=== PATIENT | female | born 1945 | race Caucasian/White ===

== ENCOUNTER 2018-09-04 05:31 | Day surgery (SDC) | payer OTHER ==
[~2018-09-04] VITALS: Ht 167.6 cm; Wt 78.1 kg
[2018-09-04] MEDS ORDERED: LACTATED RINGERS 1,000 ML IV SCH (06:41)
[2018-09-04 06:44] VITALS: BP 135/81
[2018-09-04] MEDS ORDERED: OMEP-110 PO (07:01)
[2018-09-04] MEDS ORDERED: MULT-717 PO (07:01)
[2018-09-04] MEDS ORDERED: LEVO100T5 PO (07:01)
[2018-09-04] MEDS ORDERED: SIMV20TA3 PO (07:01)
[2018-09-04] MEDS ORDERED: WELLBUTRIN PO (07:01)
[2018-09-04] MEDS ORDERED: ASPI-496 PO (07:01)
[2018-09-04] MEDS ORDERED: CARV-39 PO (07:01)
[2018-09-04] MEDS ORDERED: FENTANYL PF 250 MCG/5ML ONE (08:13)
[2018-09-04] MEDS ORDERED: MIDAZOLAM 1 MG/ML, 2ML ONE (08:13)
[2018-09-04] MEDS ORDERED: PROPOFOL 10 MG/ML, 20ML ONE (08:15)
[2018-09-04] MEDS ORDERED: ROCURONIUM 10MG/ML,5ML ONE (08:15)
[2018-09-04] MEDS ORDERED: DEXAMETHASONE 4 MG/ML, 1ML ONE ×2 (08:15→08:34)
[2018-09-04] MEDS ORDERED: SUCCINYLCHOLINE 20 MG/ML, 10ML ONE (08:15)
[2018-09-04] MEDS ORDERED: ONDANSETRON 2MG/ML, 2ML ONE ×3 (08:15→10:15)
[2018-09-04] MEDS ORDERED: LIDOCAINE 2%, 6 ML JEL.PF.APP MM ONE (08:15)
[2018-09-04] MEDS ORDERED: LIDOCAINE-MPF 2% ,5ML ONE (08:16)
[2018-09-04] MEDS ORDERED: CEFAZOLIN 1,000 MG ONE ×2 (08:31→08:34)
[2018-09-04] MEDS ORDERED: MEPERIDINE/PF 25MG/0.5ML IVPush PRN (09:00)
[2018-09-04] MEDS ORDERED: DIAZEPAM 5 MG/ML, 2ML IVPush PRN (09:00)
[2018-09-04] MEDS ORDERED: HALOPERIDOL 5 MG/ML IV PRN (09:00)
[2018-09-04] MEDS ORDERED: ONDANSETRON ODT 8 MG PO PRN (09:00)
[2018-09-04] MEDS ORDERED: MIDAZOLAM 1 MG/ML, 2ML IV PRN (09:00)
[2018-09-04] MEDS ORDERED: hydrALAzine 20 MG/ML, 1ML IV PRN (09:00)
[2018-09-04] MEDS ORDERED: MORPHINE SULFATE 4 MG/ML, 1ML IVPush PRN (09:00)
[2018-09-04] MEDS ORDERED: HYDROmorphone 2 MG/ML, 1ML IVPush PRN (09:00)
[2018-09-04] MEDS ORDERED: ALBUTEROL SULFATE 2.5 MG/3 ML NPPB PRN (09:00)
[2018-09-04] MEDS ORDERED: PROMETHAZINE 12.5 MG SUPP PR PRN (09:00)
[2018-09-04] MEDS ORDERED: ACETAMINOPHEN 325 MG TABLET PO PRN (09:00)
[2018-09-04] MEDS ORDERED: PROMETHAZINE 25 MG/ML, 1ML IV PRN (09:00)
[2018-09-04] MEDS ORDERED: LABETALOL 5MG/ML, 20ML IV PRN (09:00)
[2018-09-04] MEDS ORDERED: ONDANSETRON 2MG/ML, 2ML IV PRN (09:00)
[2018-09-04] MEDS ORDERED: EPHEDRINE 50 MG/ML, 1ML IVPush PRN (09:00)
[2018-09-04] MEDS ORDERED: OXYcodone 5 MG/5 ML ORAL.SOL UDC PO PRN (09:00)
[2018-09-04] MEDS ORDERED: KETOROLAC 30 MG/1 ML ONE (09:11)
[2018-09-04] MEDS ORDERED: FENTANYL PF 100 MCG/2ML ONE ×2 (09:26→10:04)
[2018-09-04] MEDS ORDERED: PROMETHAZINE 25 MG/ML, 1ML ONE (10:04)
[2018-09-04] MEDS: FENTANYL PF 100 MCG/2ML IV PRN ×3 (10:10→10:30)
[2018-09-04] MEDS ORDERED: HALOPERIDOL 5 MG/ML ONE (10:24)
[2018-09-04] MEDS ORDERED: MORPHINE SULFATE 4 MG/ML, 1ML ONE (10:25)
[2018-09-04] MEDS ORDERED: OXYcodone IR 5MG TABLET ONE (12:38)
[2018-09-04] MEDS ORDERED: OXYcodone IR 5MG TABLET PO PRN (13:00)
== END 2018-09-04 17:25 | disposition home or self-care (01) ==
LOC: OR 05:31 → OUT 17:25
PROVIDERS: ATTEND Orthopaedic Surgery
DX: S82.842P Displaced bimalleolar fracture of left lower leg, subsequent encounter for closed fracture with malunion (principal); M20.12 Hallux valgus (acquired), left foot; I10 Essential (primary) hypertension; E78.5 Hyperlipidemia, unspecified; E03.9 Hypothyroidism, unspecified; J44.9 Chronic obstructive pulmonary disease, unspecified; Z79.82 Long term (current) use of aspirin; Z79.891 Long term (current) use of opiate analgesic; Z79.01 Long term (current) use of anticoagulants; Z79.890 Hormone replacement therapy; Z79.899 Other long term (current) drug therapy; Z88.2 Allergy status to sulfonamides; X58.XXXD Exposure to other specified factors, subsequent encounter
CPT/HCPCS: 27814; 27870; 28725; 73600; 76000; C1713; J0330; J0690; J1100; J1630; J1885; J2250; J2405; J2550; J2704; J3010; J7120